=== PATIENT | male | born 1940 | race Caucasian/White ===

== ENCOUNTER → 2018-02-15 15:47 | Outpatient (CLI) | payer MEDICARE, OTHER, SELFPAY ==
[2018-02-15 17:07] LABS: Hematocrit 43.1 % (40-54); Hemoglobin 14.1 g/dl (13.0-16.5); Mean Corp Hgb Conc 32.7 g/gl (32-36); Mean Corpuscular Hgb 28.9 pg (27.0-32.0); Mean Corpuscular Volume 88.3 fL (80-94); Platelet Count 275 K/mm3 (150-450); RBC Distribution Width CV 13.1 % (11.6-14.6); Red Blood Count 4.88 M/mm3 (4.6-6.2); White Blood Count 8.6 K/mm3 (4.4-11.0)
[2018-02-15 17:09] LABS: Scan Indicated on CBC? Y/N NO
[2018-02-15 18:11] LABS: Anion Gap 10 (5-15); BUN 16 mg/dL (7-18); BUN/Creat Ratio 15.1 RATIO (10-20); Calcium,Total 8.7 mg/dL (8.5-10.1); Chloride 107 mmol/L (98-107); Creatinine, Serum 1.06 mg/dL (0.70-1.30); EST Glomerular Filtration Rate 72 mL/min (>60); Est Glom Filt Rate - Afr Amer 87 mL/min (>60); Glucose 78 mg/dL (74-106); Potassium 4.2 mmol/L (3.5-5.1); Sodium Level 142 mmol/L (136-145)
== END ==
PROVIDERS: Family Provider Family Medicine; PCP Family Medicine; Visit Provider Physician Assistant
DX: Z01.818 Encounter for other preprocedural examination (principal); Z01.810 Encounter for preprocedural cardiovascular examination
CPT/HCPCS: 36415; 80048; 85027; 93005

== ENCOUNTER 2018-06-22 22:09 | Observation (INO) | payer MEDICARE, OTHER, SELFPAY ==
[2018-06-22] VITALS (7 sets, daily range): BP systolic 115–187; BP diastolic 69–96; PULSE 70–75; RESP 14–17; TEMP 36.4; O2SAT 96–97; BMI 30.5
--- NOTE | 2018-06-22 22:28 | EKG12_ITS ---
Test Reason : CP Blood Pressure : / mmHG Vent. Rate : 072 BPM Atrial Rate : 072 BPM P-R Int : 148 ms QRS Dur : 094 ms QT Int : 400 ms P-R-T Axes : 032 040 029 degrees QTc Int : 438 ms Normal sinus rhythm with sinus arrhythmia Normal ECG Confirmed by ALDEN BELLE ([id number]), photograph editor NATHALIE PAUL ([id number]) on 06/25/2018 1:02:32 PM Referred By: ANGELA Confirmed By:ALDEN BELLE
--- NOTE | 2018-06-22 22:31 | RAD_ITS ---
STUDY: X-RAY CHEST REASON FOR EXAM: Male, 78 years old. Chest and back pain. TECHNIQUE: Portable chest. COMPARISON: None. FINDINGS: The lungs are clear and expanded. There is no demonstrated pleural abnormality. Normal size heart. Normal mediastinum and zenon. Normal visualized pulmonary arteries. Normal visualized aortic arch and descending thoracic aorta. There is a mild thoracic levoscoliosis. Soft tissues and bony structures are otherwise unremarkable. RAD/Chest 1 View (Portable) IMPRESSION: No acute process. Electronically Signed: Marjorie Barajas MD at 22:49 EST Tel , Service support ,
[2018-06-22] MEDS: Aspirin 81 MG TAB.CHEW 324 MG PO (22:43)
[2018-06-22 22:48] LABS: Absolute Lymphocyte Count 2.62 X10^3/ul (0.83-4.51); Absolute Neutrophil Count 8.7 X10^3/uL (2.0-7.7); Basophil# 0.04 X10^3/uL; Basophil% 0.3 % (0-1); Eosinophils% 1.6 % (0-5); Hematocrit 42.3 % (40-54); Hemoglobin 13.9 g/dl (13.0-16.5); Lymphocyte # 2.62 X10^3/ul (4.0); Lymphocyte % 21.1 % (19-41); Mean Corp Hgb Conc 32.9 g/gl (32-36); Mean Corpuscular Hgb 28.9 pg (27.0-32.0); Mean Corpuscular Volume 87.9 fL (80-94); Mean Platelet Vol. 8.4 fl (6.2-12.0); Monocyte% 7.2 % (0-10); Neutrophil # 8.66 X10^3/uL (2.7-7.7); Neutrophil % 69.6 % (47-70); Platelet Count 275 K/mm3 (150-450); RBC Distribution Width CV 13.4 % (11.6-14.6); RBC Distribution Width SD 43.2 fl (35.1-43.9); Red Blood Count 4.81 M/mm3 (4.6-6.2); White Blood Count 12.4 K/mm3 (4.4-11.0)
[2018-06-22 22:49] LABS: POSITIVE COUNT NO; POSITIVE DIFFERENTIAL NO; POSITIVE MORPHOLOGY NO
[2018-06-22 23:01] LABS: Anion Gap 8 (5-15); BUN 15 mg/dL (7-18); BUN/Creat Ratio 12.4 RATIO (10-20); Calcium,Total 8.5 mg/dL (8.5-10.1); Chloride 103 mmol/L (98-107); Creatinine, Serum 1.21 mg/dL (0.70-1.30); EST Glomerular Filtration Rate 62 mL/min (>60); Est Glom Filt Rate - Afr Amer 75 mL/min (>60); Estimated Creatinine Clearance 46.87 ml/min; Glucose 118 mg/dL (74-106); Potassium 3.9 mmol/L (3.5-5.1); Sodium Level 137 mmol/L (136-145)
[2018-06-22 23:36] LABS: AST(SGOT) 15 U/L (15-37); Alanine Aminotransfer ALT/SGPT 18 U/L (16-61); Albumin, Serum 3.6 g/dL (3.2-5.0); Alkaline Phosphatase 88 U/L (45-117); Bilirubin, Direct 0.23 mg/dL (0.00-0.30); Globulin 3.7 g/dL (2.2-4.2); Protein, Total 7.3 g/dL (6.4-8.2)
--- NOTE | 2018-06-22 23:50 | ED.VISSUMM ---
- ER Visit Summary Date of Service: 06/22/18 Chief Complaint: Heartburn band sensation around chest History of Present Illness: The patient is a 78 M who presents because of heartburn and band sensation around his chest that started approximately 1900. He was working in his shop. He states he had difficulty breathing but denied shortness of breath. Denied nausea or diaphoresis. He had an episode yesterday afternoon while working in his shop. The discomfort lasted approximate 1 hour and was associated with difficulty breathing. He had no nausea, diaphoresis or radiation of the discomfort. Today while exerting himself again in his shop developed heartburn with a band sensation around his chest difficulty breathing and pain in his back. He denies symptoms of claudication. He denies history of diabetes, hypertension or hypercholesterolemia. He was a smoker when he was a teenager. He denies any food intolerance. Upon review of records he was noted to have cholelithiasis with no history of biliary colic or evidence of cholecystitis. He denies leg pain, swelling discoloration. He denies history of PE or DVT. He has no risk factors. Please read written note for complete detail Physical Examination: Vital signs noted and blood pressure is elevated 171/83. Head is atraumatic normocephalic. Pupils are equal round reactive. Extraocular muscles are intact. TMs are pearly white with landmarks noted. Nares patent with no drainage. Posterior pharynx without erythema or exudate. Uvula is midline. There is no dysphonia or dysphasia. Trachea is midline. There is no stridor with auscultation of the neck. Heart is regular without murmur, gallop or rub. S1 and S2 are normal. Lungs are clear to auscultation with good movement of air bilaterally. Abdomen is soft with no tenderness. No hepatosplenomegaly. Negative Gray sign. Bowel sounds present normal. There is no palpable mass or pulsatile mass. There is no abdominal bruit. DP and PT pulses are 2+ and symmetric. There is no stigmata of peripheral arterial disease lower extremity. Neuro exam is nonfocal. Test Results: EKG sinus rhythm rate of 72 and the CO interval, Q synagogue QT interval normal. [place] is normal. ST-T segments are normal. Single view portable chest x-ray reveals normal cardiac silhouette and lung parenchyma. There is granulomatous disease noted predominant left hilum. Osseous structures are normal. White count is slightly elevated 12.4. Basic medical panel is unremarkable. Liver profile normal. First troponin less than 0.015. Emergency Department Course and Treatment: Patient was treated with aspirin and nitro series ordered. He states the discomfort got worse with the nitroglycerin. Cardiac workup was undertaken initially. After learning that he has cholelithiasis hepatic and lipase were added. Treatment Plan: The hospitalist was called and he will be a 23-hour observation PCU for further testing to determine cardiac versus noncardiac etiology and specifically biliary Disposition: PCU Impression: 1. Chest pain 2. History of cholelithiasis 3. Hypertension in nonhypertensive patient This note was generated with [employer] dictation software. It may contain incorrect words, spelling, and punctuation that were not noted in review of the chart prior to signing ED Disposition - Plan for ED Patient: Chief Complaint: Chest Pain Referrals: Adria Brown [Primary Care Provider] -
--- NOTE | 2018-06-22 23:52 | HP.PCM_ITS ---
History of Present Illness Date of Admission: 06/23/18 Chief Complaint: chest pain The patient is a 78 year old M with no significant past medical history. He was admitted through the ED on 06/22/2018 with a complaint of chest pain. Chest pain was pressure-like, radiated to his left shoulder, with no aggravating or relieving factors. He rated it at about 8 out of 10 at its worse. He denied any lightheadedness or dizziness or palpitations or shortness of breath with or chest pain. He says a few weeks ago he went to his primary care doctor because he was having increased diaphoresis and feeling lightheaded but did not have any chest pain at that time. He has a strong family history of heart disease with his father dying of a heart attack and having had some strokes and his brother is also having heart attacks. He also had pain radiated to his upper abdomen sometimes. In the ED, vitals were stable and initial troponin was negative. EKG shows sinus arrhythmia with no acute ST changes. He has been admitted to be managed for chest pain to rule out ACS. [] Past Medical History Allergies No Known Allergies Allergy (Verified 06/22/18 22:18) Home Medications: Ambulatory Orders Medication Instructions Recorded Aspirin [Aspirin, Baby] 81 mg PO DAILY 06/22/18 Potassium 1 tab PO DAILY 06/22/18 Tamsulosin HCl [Flomax] 0.4 mg PO DAILY 06/22/18 Surgical History: - - neck and wrist surgery after accident; bilateral rotator cuff surgery Psychiatric History: No pertinent psych hx Lives: Spouse/ Significant Other Smoking Status: Former smoker - quit in high school Alcohol: Occasional Drugs: None - *Family History Paternal History Items: Heart Disease, Hypertension, Stroke Sibling History Items: Heart Disease, Hypertension Maternal History Items: Cancer Review of Systems Constitutional: Denies: Chills, Fever, Malaise, Weakness, Weight Change, Fatigue Eyes: Denies: Blurred vision HEENT: Denies: Head Aches, Sinus Congestion, Sinus Drainage Cardiovascular: Reports: Chest Pain, Chest Pressure, Heaviness. Denies: Chest Tightness, Edema, Light Headedness, Orthopnea, Palpitations, Paroxysmal Noc. Dyspnea, Syncope Respiratory: Denies: Cough, Shortness of Breath, Shortness of breath at rest, Shortness of breath upon exertion, Sputum production, Wheezing Gastrointestinal: Reports: Abdominal Pain. Denies: Nausea, Vomiting Genitourinary: Denies: Dysuria Musculoskeletal: Denies: Joint Pain, Joint Tenderness Skin: Denies: Rash, Wounds Neurological: Denies: Numbness, Tingling, Focal weakness Psychiatric: Denies: Anxiety, Depression, Homicidal Ideations, Suicidal Ideations Hematologic/ Lymphatic: Denies: Easy Bruising, Easy Bleeding VTE Information - Inpt Only VTE Present on Admission: No VTE Pharm Prophylaxis ordered?: Yes - Physical Exam General: Alert, Oriented x3, Cooperative, No apparent distress HEENT: Atraumatic, PERRLA, EOMI, Normocephalic Oral: Moist Mucosa Neck: Supple, No JVD, Negative Carotid Bruits Lungs: Clear to auscultation, Normal air movement, No rhonchi, No wheeze, No rales Cardiovascular: Regular rate, Regular Rhythm, Normal S1, Normal S2, No murmurs Abdomen: Bowel Sounds Present, Soft, Non Tender, Non-Distended, No Hepato- splenomegaly Extremities: No clubbing, No cyanosis, No edema, Capillary Refill Less than 3 Seconds Skin: No rashes, No breakdown Musculoskeletal: No Tenderness to Palpation of Joints or Extremities Lymphatic: No Cervical, Supraclavicular, or Inguinal Adenopathy Neurological: Cranial nerves II-XII grossly intact, Neuro grossly intact, Motor Exam 5/5 strength throughout Psych/Mental Status: Normal Affect, Appropriate, Alert and oriented to time, place, person, mood and affect Vital Signs Temp Pulse Resp BP Pulse Ox 97.6 F L 73 14 118/69 96 06/22/18 22:12 06/22/18 23:25 06/22/18 23:25 06/22/18 23:25 06/22/18 23:25 Oxygen Delivery Method Room Air Weight: 189 lb 6.033 oz Body Mass Index (BMI) 30.5 Laboratory Tests Past 24 Hrs 06/22/18 06/22/18 06/22/18 22:36 22:36 22:36 WBC 12.4 H RBC 4.81 Hgb 13.9 Hct 42.3 MCV 87.9 MCH 28.9 MCHC 32.9 RDW 13.4 RDW Differential 43.2 Plt Count 275 MPV 8.4 Immature Gran % (Auto) 0.200 Neut % (Auto) 69.6 Lymph % (Auto) 21.1 [place] % (Auto) 7.2 Eos % (Auto) 1.6 Baso % (Auto) 0.3 Absolute Neuts (auto) 8.7 H Absolute Lymphs (auto) 2.62 Total Counted Not Reportable Sodium 137 Potassium 3.9 Chloride 103 Carbon Dioxide 26.0 Anion Gap 8 BUN 15 Creatinine 1.21 Estim Creat Clear Calc 46.87 Est GFR (MDRD) Af Amer 75 Est GFR (MDRD) Non-Af 62 BUN/Creatinine Ratio 12.4 Glucose 118 H Calcium 8.5 Total Bilirubin 0.80 Direct Bilirubin 0.23 AST 15 ALT 18 Alkaline Phosphatase 88 Troponin I < 0.015 Total Protein 7.3 Albumin 3.6 Globulin 3.7 Lipase 06/22/18 22:36 WBC RBC Hgb Hct MCV MCH MCHC RDW RDW Differential Plt Count MPV Immature Gran % (Auto) Neut % (Auto) Lymph % (Auto) [place] % (Auto) Eos % (Auto) Baso % (Auto) Absolute Neuts (auto) Absolute Lymphs (auto) Total Counted Sodium Potassium Chloride Carbon Dioxide Anion Gap BUN Creatinine Estim Creat Clear Calc Est GFR (MDRD) Af Amer Est GFR (MDRD) Non-Af BUN/Creatinine Ratio Glucose Calcium Total Bilirubin Direct Bilirubin AST ALT Alkaline Phosphatase Troponin I Total Protein Albumin Globulin Lipase Pending Diagnostic Data Chest X-Ray 06/22/18 22:31 IMPRESSION: No acute process. Electronically Signed: Marjorie Barajas MD at 22:49 EST Tel , Service support , Assessment/Plan 28-year-old male presents with a complaint of chest pain 1. Chest pain to rule out ACS * pain is pressure like and radiates to left shoulder. * EKG negative for any acute ST changes * initial troponin negative * admit to PCU with telemetry * Cycle troponins. * Check lipid panel and A1c. * Sublingual nitroglycerin as needed * P.o. aspirin 81 mg daily * 2. BPH: On Flomax DVT Prophylaxis: Heparin Code Visit OBSV E&M: 36216 Initial observation care L2
--- NOTE | 2018-06-22 23:56 | ED.DCSUM_ITS ---
- ER Visit Summary Date of Service: 06/22/18 Chief Complaint: Heartburn band sensation around chest History of Present Illness: The patient is a 78 M who presents because of heartburn and band sensation around his chest that started approximately 1900. He was working in his shop. He states he had difficulty breathing but denied shortness of breath. Denied nausea or diaphoresis. He had an episode yesterday afternoon while working in his shop. The discomfort lasted approximate 1 hour and was associated with difficulty breathing. He had no nausea, diaphoresis or radiation of the discomfort. Today while exerting himself again in his shop developed heartburn with a band sensation around his chest difficulty breathing and pain in his back. He denies symptoms of claudication. He denies history of diabetes, hypertension or hypercholesterolemia. He was a smoker when he was a teenager. He denies any food intolerance. Upon review of records he was noted to have cholelithiasis with no history of biliary colic or evidence of cholecystitis. He denies leg pain, swelling discoloration. He denies history of PE or DVT. He has no risk factors. Please read written note for complete detail Physical Examination: Vital signs noted and blood pressure is elevated 171/83. Head is atraumatic normocephalic. Pupils are equal round reactive. Extraocular muscles are intact. TMs are pearly white with landmarks noted. Nares patent with no drainage. Posterior pharynx without erythema or exudate. Uvula is midline. There is no dysphonia or dysphasia. Trachea is midline. There is no stridor with auscultation of the neck. Heart is regular without murmur, gallop or rub. S1 and S2 are normal. Lungs are clear to auscultation with good movement of air bilaterally. Abdomen is soft with no tenderness. No hepatosplenomegaly. Negative Gray sign. Bowel sounds present normal. There is no palpable mass or pulsatile mass. There is no abdominal bruit. DP and PT pulses are 2+ and symmetric. There is no stigmata of peripheral arterial disease lower extremity. Neuro exam is nonfocal. Test Results: EKG sinus rhythm rate of 72 and the IA interval, Q druze QT interval normal. [place] is normal. ST-T segments are normal. Single view por table chest x-ray reveals normal cardiac silhouette and lung parenchyma. There is granulomatous disease noted predominant left hilum. Osseous structures are normal. White count is slightly elevated 12.4. Basic medical panel is unremarkable. Liver profile normal. First troponin less than 0.015. Emergency Department Course and Treatment: Patient was treated with aspirin and nitro series ordered. He states the discomfort got worse with the nitroglycerin. Cardiac workup was undertaken initially. After learning that he has cholelithiasis hepatic and lipase were added. Treatment Plan: The hospitalist was called and he will be a 23-hour observation PCU for further testing to determine cardiac versus noncardiac etiology and specifically biliary Disposition: PCU Impression: 1. Chest pain 2. History of cholelithiasis 3. Hypertension in nonhypertensive patient This note was generated with [employer] dictation software. It may contain incorrect words, spelling, and punctuation that were not noted in review of the chart prior to signing ED Disposition - Plan for ED Patient: Chief Complaint: Chest Pain Referrals: Adria Brown [Primary Care Provider] -
[2018-06-23] VITALS (8 sets, daily range): BP systolic 142–159; BP diastolic 72–80; PULSE 68–81; RESP 16–20; TEMP 36.8–37; O2SAT 93–98; BMI 29.9
[2018-06-23 00:05] LABS: Lipase 231 U/L (73-393)
[2018-06-23 01:10] LABS: Hemoglobin A1c 6.6 % (4.2-6.3)
--- NOTE | 2018-06-23 04:12 | STE_ITS ---
Reason For Study: Chest Pain Stress Results Protocol: [place] Protocol Maximum Predicted HR: 144 bpm Target HR: 122 bpm % Maximum Predicted HR: 106 % DurationHeart Rate Stage (mm:ss) (bpm) BP Comment Baseline 98 158/74No Chest Pain [place] Protocol Stage I 3:00 121 170/68No Chest Pain [place] Protocol Stage II 3:00 136 184/70No Chest Pain [place] Protocol Stage III 3:00 153 176/72No Chest Pain Recovery 113 154/80No Chest Pain Stress Duration: 9:00 mm:ss Maximum Stress HR: 153 bpm METS: 10 Baseline Echocardiogram Findings The estimated ejection fraction is 65 %. Stress Echo Wall motion Data Resting WM Intermediate WM Stress WM Resting Wall Motion Wall Motion Stress No regional wall motion No regional wall motion abnormalities noted. abnormalities noted. EKG Data The baseline ECG displays normal sinus rhythm. The patient exercised according to the regular [place] protocol for a total duration of 9:00. The maximum heart rate attained was 155 beats per minute. This was 107% of maximum predicted heart rate. The patient exercised into stage 4 of the [place] protocol. During stress, there were no ST or T wave changes noted to suggest ischemia. No clinical angina was noted. Interpretation Summary The estimated ejection fraction is 65 %. Normal, adequate, treadmill echocardiogram. Negative for ischemia by EKG and echocardiographic criteria. No anginal symptoms noted. Rare PACs noted. Appropriate blood pressure response to exercise. Average exercise capacity for age. Final LVEF is 75%. Test terminated due to fatigue. No complications. Ordering Physician: Yumiko Fontanez M.D. Referring Physician: Andrey Bruner Performed By: Gina Hernandez, LUCINDA, RVT
[2018-06-23 04:53] LABS: Absolute Lymphocyte Count 2.05 X10^3/ul (0.83-4.51); Absolute Neutrophil Count 8.1 X10^3/uL (2.0-7.7); Basophil# 0.06 X10^3/uL; Basophil% 0.5 % (0-1); Eosinophil# 0.06 X10^3/uL; Eosinophils% 0.5 % (0-5); Hemoglobin 13.9 g/dl (13.0-16.5); Lymphocyte # 2.05 X10^3/ul (4.0); Lymphocyte % 17.8 % (19-41); Mean Corp Hgb Conc 33.9 g/gl (32-36); Mean Corpuscular Hgb 29.6 pg (27.0-32.0); Mean Corpuscular Volume 87.2 fL (80-94); Mean Platelet Vol. 8.5 fl (6.2-12.0); Monocyte# 1.23 X10^3/uL; Monocyte% 10.7 % (0-10); Neutrophil # 8.06 X10^3/uL (2.7-7.7); Neutrophil % 70.2 % (47-70); Platelet Count 311 K/mm3 (150-450); RBC Distribution Width CV 13.4 % (11.6-14.6); RBC Distribution Width SD 41.6 fl (35.1-43.9); White Blood Count 11.5 K/mm3 (4.4-11.0)
[2018-06-23 04:55] LABS: POSITIVE COUNT NO; POSITIVE DIFFERENTIAL NO; POSITIVE MORPHOLOGY NO
[2018-06-23 05:05] LABS: International Normalized Ratio 1.1; Prothrombin Time (Protime)PT. 13.7 SECONDS (11.7-14.9)
[2018-06-23 05:06] LABS: Partial Thromboplast Time 35.9 Seconds (24.1-36.2)
[2018-06-23 05:15] LABS: Anion Gap 8 (5-15); BUN 11 mg/dL (7-18); BUN/Creat Ratio 10.6 RATIO (10-20); Calcium,Total 8.5 mg/dL (8.5-10.1); Chloride 106 mmol/L (98-107); Cholesterol 128 mg/dL (200); Creatinine, Serum 1.04 mg/dL (0.70-1.30); EST Glomerular Filtration Rate 74 mL/min (>60); Est Glom Filt Rate - Afr Amer 89 mL/min (>60); Estimated Creatinine Clearance 54.53 ml/min; Glucose 114 mg/dL (74-106); High Density Lipoprotein 45 mg/dL; Potassium 4.2 mmol/L (3.5-5.1); Sodium Level 140 mmol/L (136-145); Triglycerides 75 mg/dL; Very Low Density Lipoprotein 15 mg/dL (5-40)
[2018-06-23] MEDS: 0.9% NaCl Peripheral Flush Adult/Peds IV (05:57)
[2018-06-23] MEDS: Aspirin 81 MG TAB.CHEW PO (06:57)
[2018-06-23] MEDS: Enoxaparin 40 MG/0.4 ML Syringe SC (10:08)
[2018-06-23] MEDS: Tamsulosin HCl 0.4 MG Capsule PO (10:08)
--- NOTE | 2018-06-23 10:48 | PCM.DC ---
You will use the following diet at home:: Other - Carb controlled Discharge Activity: Return to Normal Activity Call your doctor if you observe: Shortness of breath, Dizziness, Fainting spells, Chest pain Additional Instructions: Your hemoglobin A1c was 6.6% which indicates you have type 2 diabetes mellitus. Recommend carb control diet and further discussion with your primary care about adding medication if necessary. Allergies/Adverse Reactions: Allergies No Known Allergies Allergy (Verified 06/22/18 22:18) Medications to take at Discharge Aspirin [Aspirin, Baby] 81 mg PO DAILY 06/22/18 Potassium 1 tab PO DAILY 06/22/18 Tamsulosin HCl [Flomax] 0.4 mg PO DAILY 06/22/18 Cholecalciferol (Vitamin D3) [Vitamin D3] 2,000 unit PO DAILY 06/23/18 Gluc Pollard/Chondro Pollard A/Vit C/Mn [Glucosamine Chondroitin Tab] 2 each PO BREAKFAST 06/23/18 Primary Care Physician: Adria Brown [Primary Care Provider] - Please follow up with your Primary Care Physician in: 1 Week Test Results: Test results from this visit will be discussed in further detail at your follow-up appointment, if applicable. Proposed Discharge Date: 06/23/18
--- NOTE | 2018-06-23 10:56 | DCINST_ITS ---
You will use the following diet at home:: Other - Carb controlled Discharge Activity: Return to Normal Activity Call your doctor if you observe: Shortness of breath, Dizziness, Fainting spells, Chest pain Additional Instructions: Your hemoglobin A1c was 6.6% which indicates you have type 2 diabetes mellitus. Recommend carb control diet and further discussion with your primary care about adding medication if necessary. Allergies/Adverse Reactions: Allergies No Known Allergies Allergy (Verified 06/22/18 22:18) Medications to take at Discharge Aspirin [Aspirin, Baby] 81 mg PO DAILY 06/22/18 Potassium 1 tab PO DAILY 06/22/18 Tamsulosin HCl [Flomax] 0.4 mg PO DAILY 06/22/18 Cholecalciferol (Vitamin D3) [Vitamin D3] 2,000 unit PO DAILY 06/23/18 Gluc Pollard/Chondro Pollard A/Vit C/Mn [Glucosamine Chondroitin Tab] 2 each PO BREAKFAST 06/23/18 Primary Care Physician: Adria Brown [Primary Care Provider] - Please follow up with your Primary Care Physician in: 1 Week Test Results: Test results from this visit will be discussed in further detail at your follow- up appointment, if applicable. Proposed Discharge Date: 06/23/18
--- NOTE | 2018-06-23 11:14 | DS.PCM_ITS ---
<Ivonne Christian - Last Filed: 06/23/18 11:14> Discharge Date and Diagnosis Date of Admission: 06/23/18 Date of Discharge: 06/23/18 - Primary Discharge Diagnosis 1. Non-cardiac chest pain, ACS ruled out 2. New diagnosis Type 2 Diabetes Mellitus 3. BPH Hospital Course and Treatment Imaging Results: Diagnostic Data Chest X-Ray 06/22/18 22:31 IMPRESSION: No acute process. Electronically Signed: Marjorie Barajas MD at 22:49 EST Tel , Service support , Operations: None Procedures: - - Stress echo Summary of Care Provided: The patient is a 78 year old M admitted 06/23/18 due to chest pain. ACS ruled out. Troponin negative. EKG with no ST-T changes. Chest x-ray without acute process. Patient underwent stress echo which was negative for ischemia, EF 65%. Patient has not had further chest pain. Hemoglobin A1c 6.6%. Patient recommended carb controlled diet with follow-up with primary care physician to discuss adding additional oral agents if necessary. Follow up with primary care physician in 1 week. General: Alert, Oriented x3, Cooperative HEENT: Atraumatic, PERRLA, EOMI, Normocephalic Oral: Moist Mucosa Neck: Supple, No JVD, Negative Carotid Bruits Lungs: Clear to auscultation, Normal air movement Cardiovascular: Regular rate, Regular Rhythm, Normal S1, Normal S2, No murmurs Abdomen: Bowel Sounds Present, Soft, Non Tender Extremities: No clubbing, No cyanosis, No edema, Capillary Refill Less than 3 Seconds Skin: No rashes, No breakdown Musculoskeletal: No Tenderness to Palpation of Joints or Extremities Lymphatic: No Cervical, Supraclavicular, or Inguinal Adenopathy Neurological: Cranial nerves II-XII grossly intact, Neuro grossly intact Psych/Mental Status: Normal Affect Patient seen and examined prior to discharge. Physical assessment as noted above. Patient is stable for discharge with follow up recommendations as noted above. This patient was seen by COSMO Serrato under the supervision of Dr. Bravo. - Physical Exam Vital Signs Temp Pulse Resp BP Pulse Ox 98.3 F 74 16 156/80 H 94 06/23/18 10:07 06/23/18 10:07 06/23/18 10:07 06/23/18 10:07 06/23/18 10:07 Oxygen Delivery Method Room Air Weight: 185 lb 3.013 oz Body Mass Index (BMI) 29.9 Intake and Output for Last 24 Hours 06/21/18 06/22/18 06/23/18 23:59 23:59 23:59 Intake Total 100 / 100 Balance 100 / 100 Laboratory Tests Past 24 Hrs 06/22/18 06/22/18 06/22/18 22:36 22:36 22:36 WBC 12.4 H RBC 4.81 Hgb 13.9 Hct 42.3 MCV 87.9 MCH 28.9 MCHC 32.9 RDW 13.4 RDW Differential 43.2 Plt Count 275 MPV 8.4 Immature Gran % (Auto) 0.200 Neut % (Auto) 69.6 Lymph % (Auto) 21.1 Sequoyah % (Auto) 7.2 Eos % (Auto) 1.6 Baso % (Auto) 0.3 Absolute Neuts (auto) 8.7 H Absolute Lymphs (auto) 2.62 Total Counted Not Reportable PT INR APTT Sodium 137 Potassium 3.9 Chloride 103 Carbon Dioxide 26.0 Anion Gap 8 BUN 15 Creatinine 1.21 Estim Creat Clear Calc 46.87 Est GFR (MDRD) Af Amer 75 Est GFR (MDRD) Non-Af 62 BUN/Creatinine Ratio 12.4 Glucose 118 H Hemoglobin A1c Calcium 8.5 Total Bilirubin 0.80 Direct Bilirubin 0.23 AST 15 ALT 18 Alkaline Phosphatase 88 Troponin I < 0.015 Total Protein 7.3 Albumin 3.6 Globulin 3.7 Triglycerides Cholesterol LDL Cholesterol VLDL Cholesterol HDL Cholesterol Lipase 06/22/18 06/22/18 06/23/18 22:36 22:36 02:12 WBC RBC Hgb Hct MCV MCH MCHC RDW RDW Differential Plt Count MPV Immature Gran % (Auto) Neut % (Auto) Lymph % (Auto) Sequoyah % (Auto) Eos % (Auto) Baso % (Auto) Absolute Neuts (auto) Absolute Lymphs (auto) Total Counted PT INR APTT Sodium Potassium Chloride Carbon Dioxide Anion Gap BUN Creatinine Estim Creat Clear Calc Est GFR (MDRD) Af Amer Est GFR (MDRD) Non-Af BUN/Creatinine Ratio Glucose Hemoglobin A1c 6.6 H Calcium Total Bilirubin Direct Bilirubin AST ALT Alkaline Phosphatase Troponin I < 0.015 Total Protein Albumin Globulin Triglycerides Cholesterol LDL Cholesterol VLDL Cholesterol HDL Cholesterol Lipase 231 06/23/18 06/23/18 06/23/18 04:45 04:45 04:45 WBC 11.5 H RBC 4.70 Hgb 13.9 Hct 41.0 MCV 87.2 MCH 29.6 MCHC 33.9 RDW 13.4 RDW Differential 41.6 Plt Count 311 MPV 8.5 Immature Gran % (Auto) 0.300 Neut % (Auto) 70.2 H Lymph % (Auto) 17.8 L Sequoyah % (Auto) 10.7 H Eos % (Auto) 0.5 Baso % (Auto) 0.5 Absolute Neuts (auto) 8.1 H Absolute Lymphs (auto) 2.05 Total Counted Not Reportable PT 13.7 INR 1.1 APTT 35.9 Sodium 140 Potassium 4.2 Chloride 106 Carbon Dioxide 26.0 Anion Gap 8 BUN 11 Creatinine 1.04 Estim Creat Clear Calc 54.53 Est GFR (MDRD) Af Amer 89 Est GFR (MDRD) Non-Af 74 BUN/Creatinine Ratio 10.6 Glucose 114 H Hemoglobin A1c Calcium 8.5 Total Bilirubin Direct Bilirubin AST ALT Alkaline Phosphatase Troponin I < 0.015 Total Protein Albumin Globulin Triglycerides 75 Cholesterol 128 LDL Cholesterol 68 VLDL Cholesterol 15 HDL Cholesterol 45 Lipase Discharge Diet: Carb Control Diet Discharge Activity: Return to Normal Activity Call your doctor if you observe: Shortness of breath, Dizziness, Fainting spells, Chest pain Home Medications: Medications to take at Discharge Aspirin [Aspirin, Baby] 81 mg PO DAILY 06/22/18 Potassium 1 tab PO DAILY 06/22/18 Tamsulosin HCl [Flomax] 0.4 mg PO DAILY 06/22/18 Cholecalciferol (Vitamin D3) [Vitamin D3] 2,000 unit PO DAILY 06/23/18 Gluc Pollard/Chondro Pollard A/Vit C/Mn [Glucosamine Chondroitin Tab] 2 each PO BREAKFAST 06/23/18 Primary Care Physician: Adria Brown [Primary Care Provider] - Please follow up with your Primary Care Physician in: 1 Week Disposition: Home Minutes spent on discharge:: 35 Patient Condition:: Stable Medical Necessity - Tobacco Use Smoking Status: Former smoker - quit in high school Tobacco Use: Non-smoker Meaningful Use Info Meaningful Use Diagnoses (Choose all that apply): None applicable <Kittoe,Polo - Last Filed: 06/23/18 11:46> Hospital Course and Treatment Imaging Results: 06/23/18 04:12 Stress Test Echo w/o Contrast [ECHO] Routine Summary of Care Provided: This patient was seen in conjunction with COSMO Serrato . I have independently interviewed and examined the patient and reviewed pertinent historical, laboratory, and other data. Please refer to COSMO Serrato note for details of this patient's presentation, findings, and recommendations. I have reviewed COSMO Serrato note and concur with documented findings. In brief, patient is a 88-year-old gentleman admitted with chest pain. Patient was placed on a monitored bed, KS was ruled out with serial cardiac enzymes subsequently underwent a rest echo which was negative for stress-induced ischemia discharge home instructed to follow-up with PCP - Physical Exam Vital Signs Temp Pulse Resp BP Pulse Ox 98.3 F 74 16 156/80 H 94 06/23/18 10:07 06/23/18 10:07 06/23/18 10:07 06/23/18 10:07 06/23/18 10:07 Oxygen Delivery Method Room Air Weight: 84 kg Body Mass Index (BMI) 29.9 Intake and Output for Last 24 Hours 06/21/18 06/22/18 06/23/18 23:59 23:59 23:59 Intake Total 100 / 100 Balance 100 / 100 Laboratory Tests Past 24 Hrs 06/22/18 06/22/18 06/22/18 22:36 22:36 22:36 WBC 12.4 H RBC 4.81 Hgb 13.9 Hct 42.3 MCV 87.9 MCH 28.9 MCHC 32.9 RDW 13.4 RDW Differential 43.2 Plt Count 275 MPV 8.4 Immature Gran % (Auto) 0.200 Neut % (Auto) 69.6 Lymph % (Auto) 21.1 Sequoyah % (Auto) 7.2 Eos % (Auto) 1.6 Baso % (Auto) 0.3 Absolute Neuts (auto) 8.7 H Absolute Lymphs (auto) 2.62 Total Counted Not Reportable PT INR APTT Sodium 137 Potassium 3.9 Chloride 103 Carbon Dioxide 26.0 Anion Gap 8 BUN 15 Creatinine 1.21 Estim Creat Clear Calc 46.87 Est GFR (MDRD) Af Amer 75 Est GFR (MDRD) Non-Af 62 BUN/Creatinine Ratio 12.4 Glucose 118 H Hemoglobin A1c Calcium 8.5 Total Bilirubin 0.80 Direct Bilirubin 0.23 AST 15 ALT 18 Alkaline Phosphatase 88 Troponin I < 0.015 Total Protein 7.3 Albumin 3.6 Globulin 3.7 Triglycerides Cholesterol LDL Cholesterol VLDL Cholesterol HDL Cholesterol Lipase 06/22/18 06/22/18 06/23/18 22:36 22:36 02:12 WBC RBC Hgb Hct MCV MCH MCHC RDW RDW Differential Plt Count MPV Immature Gran % (Auto) Neut % (Auto) Lymph % (Auto) Sequoyah % (Auto) Eos % (Auto) Baso % (Auto) Absolute Neuts (auto) Absolute Lymphs (auto) Total Counted PT INR APTT Sodium Potassium Chloride Carbon Dioxide Anion Gap BUN Creatinine Estim Creat Clear Calc Est GFR (MDRD) Af Amer Est GFR (MDRD) Non-Af BUN/Creatinine Ratio Glucose Hemoglobin A1c 6.6 H Calcium Total Bilirubin Direct Bilirubin AST ALT Alkaline Phosphatase Troponin I < 0.015 Total Protein Albumin Globulin Triglycerides Cholesterol LDL Cholesterol VLDL Cholesterol HDL Cholesterol Lipase 231 06/23/18 06/23/18 06/23/18 04:45 04:45 04:45 WBC 11.5 H RBC 4.70 Hgb 13.9 Hct 41.0 MCV 87.2 MCH 29.6 MCHC 33.9 RDW 13.4 RDW Differential 41.6 Plt Count 311 MPV 8.5 Immature Gran % (Auto) 0.300 Neut % (Auto) 70.2 H Lymph % (Auto) 17.8 L Sequoyah % (Auto) 10.7 H Eos % (Auto) 0.5 Baso % (Auto) 0.5 Absolute Neuts (auto) 8.1 H Absolute Lymphs (auto) 2.05 Total Counted Not Reportable PT 13.7 INR 1.1 APTT 35.9 Sodium 140 Potassium 4.2 Chloride 106 Carbon Dioxide 26.0 Anion Gap 8 BUN 11 Creatinine 1.04 Estim Creat Clear Calc 54.53 Est GFR (MDRD) Af Amer 89 Est GFR (MDRD) Non-Af 74 BUN/Creatinine Ratio 10.6 Glucose 114 H Hemoglobin A1c Calcium 8.5 Total Bilirubin Direct Bilirubin AST ALT Alkaline Phosphatase Troponin I < 0.015 Total Protein Albumin Globulin Triglycerides 75 Cholesterol 128 LDL Cholesterol 68 VLDL Cholesterol 15 HDL Cholesterol 45 Lipase Code Visit OBSV E&M: 61421 Observation care discharge
== END 2018-06-23 10:49 | disposition home or self-care (01) ==
LOC: ED 22:48 → PCU 06-23 00:13
PROVIDERS: Admitting Provider Student in an Organized Health Care Education/Training Program; Emergency Provider Emergency Medicine; Family Provider Family Medicine; PCP Family Medicine; Visit Provider Internal Medicine
DX: R07.89 Other chest pain (principal); E11.9 Type 2 diabetes mellitus without complications; N40.0 Benign prostatic hyperplasia without lower urinary tract symptoms; R06.00 Dyspnea, unspecified; R12 Heartburn; Z79.899 Other long term (current) drug therapy; Z79.82 Long term (current) use of aspirin; Z87.891 Personal history of nicotine dependence
CPT/HCPCS: 36415; 71045; 80048; 80061; 80076; 83036; 83690; 84484; 85025; 85610; 85730; 93005; 93017; 93350; 96372; 99218; 99285; A4216; G0378

== ENCOUNTER 2018-07-14 18:38 | Emergency (ER) | payer MEDICARE, OTHER, SELFPAY ==
[2018-06-28 07:39] VITALS: BMI 29.7
[2018-07-14 18:39] VITALS: BP 121/76; PULSE 111; RESP 16; TEMP 36.1; O2SAT 95; BMI 28.8
--- NOTE | 2018-07-14 19:05 | ED.VISSUMM ---
- ER Visit Summary Date of Service: 07/14/18 Chief Complaint: Abdominal pain History of Present Illness: The patient is a 78 M presenting with abdominal pain. He states this started around 930 this morning. He has had nausea and decreased appetite today. He denies vomiting, diarrhea, constipation. Denies fever. He is scheduled to have his gallbladder removed on Monday per Dr. Nash. Physical Examination: Vitals are stable. Patient is afebrile. Alert no acute distress. HEENT exam is unremarkable. Neck is supple. Lungs are clear and equal bilaterally. Heart is regular rate and rhythm. Abdomen is soft right upper quadrant tenderness with no rebound or guarding Extremities are unremarkable. Skin is warm and dry. No focal neurologic deficit. Remainder of exam is unremarkable. Emergency Department Course and Treatment: Patient is given IV fluids, morphine, Zofran. CBC shows elevated white count of 15.2. Chemistries unremarkable. Total bili 3.1, direct bili 1.56, alk phos 177, ALT 249, AST 358, lipase 165. He was given Zosyn IV. Findings were discussed with Dr. Jordan. She discussed with Dr. Kearney. He is not available for ERCP this weekend. She feels he requires transfer to tertiary care center due to possibility of needing ERCP. Discussed with [facility] for transfer. Disposition: Transfer [facility] Impression: Cholecystitis with elevated liver enzymes This note was generated with [employer] dictation software. It may contain incorrect words, spelling, and punctuation that were not noted in review of the chart prior to signing ED Disposition - Plan for ED Patient: Chief Complaint: Abd Pain Referrals: Adria Brown [Primary Care Provider] -
[2018-07-14] MEDS: Morphine 4 MG/ML Syringe IV (19:21)
[2018-07-14] MEDS: Ondansetron 4 MG/2 ML Vial IV (19:21)
[2018-07-14 19:39] LABS: Absolute Lymphocyte Count 0.46 X10^3/ul (0.83-4.51); Absolute Neutrophil Count 14.3 X10^3/uL (2.0-7.7); Basophil# 0.02 X10^3/uL; Basophil% 0.1 % (0-1); Differential Indicated SCAN CRITERIA MET; Eosinophil# 0.04 X10^3/uL; Eosinophils% 0.3 % (0-5); Hemoglobin 13.9 g/dl (13.0-16.5); Lymphocyte # 0.46 X10^3/ul (4.0); Mean Corp Hgb Conc 32.3 g/gl (32-36); Mean Corpuscular Hgb 28.3 pg (27.0-32.0); Mean Corpuscular Volume 87.6 fL (80-94); Monocyte# 0.37 X10^3/uL; Monocyte% 2.4 % (0-10); Neutrophil # 14.27 X10^3/uL (2.7-7.7); Neutrophil % 93.9 % (47-70); POSITIVE COUNT NO; POSITIVE DIFFERENTIAL YES; POSITIVE MORPHOLOGY NO; Platelet Count 240 K/mm3 (150-450); RBC Distribution Width CV 13.2 % (11.6-14.6); RBC Distribution Width SD 42.2 fl (35.1-43.9); Red Blood Count 4.91 M/mm3 (4.6-6.2); White Blood Count 15.2 K/mm3 (4.4-11.0)
[2018-07-14 19:44] LABS: AST(SGOT) 358 U/L (15-37); Alanine Aminotransfer ALT/SGPT 249 U/L (16-61); Albumin, Serum 3.2 g/dL (3.2-5.0); Alkaline Phosphatase 177 U/L (45-117); Anion Gap 9 (5-15); BUN 10 mg/dL (7-18); Bilirubin, Direct 1.56 mg/dL (0.00-0.30); Calcium,Total 8.5 mg/dL (8.5-10.1); Chloride 104 mmol/L (98-107); EST Glomerular Filtration Rate 77 mL/min (>60); Est Glom Filt Rate - Afr Amer 93 mL/min (>60); Estimated Creatinine Clearance 56.71 ml/min; Globulin 3.8 g/dL (2.2-4.2); Glucose 111 mg/dL (74-106); Lipase 165 U/L (73-393); Potassium 3.9 mmol/L (3.5-5.1); Sodium Level 137 mmol/L (136-145)
[2018-07-14 20:02] LABS: Differential Comment SCANNED
[2018-07-14] MEDS: Piperacil/Tazobactam 3.375 GM/50 ML ML IV (21:07)
[2018-07-14 21:08] VITALS: BP 124/67; PULSE 102; RESP 18; O2SAT 92
--- NOTE | 2018-07-14 21:24 | NURSING ---
ACCEPTED TO [facility] BY DR. SIERRA [phone] BED [id number]
[2018-07-14 21:52] VITALS: BP 130/65; PULSE 104; RESP 16; TEMP 36.4; O2SAT 92
== END 2018-07-14 22:00 | disposition short-term general hospital (02) ==
PROVIDERS: Emergency Provider Emergency Medicine; Family Provider Family Medicine; PCP Family Medicine
DX: K81.9 Cholecystitis, unspecified (principal); R74.8 Abnormal levels of other serum enzymes; D72.829 Elevated white blood cell count, unspecified; E11.9 Type 2 diabetes mellitus without complications; N40.0 Benign prostatic hyperplasia without lower urinary tract symptoms; Z79.82 Long term (current) use of aspirin; Z79.899 Other long term (current) drug therapy
CPT/HCPCS: 80048; 80076; 83690; 85025; 96365; 96375; 99285; J7030; J7040; A4216; J2405

== ENCOUNTER → 2018-08-10 09:11 | Outpatient (CLI) | payer MEDICARE, OTHER, SELFPAY ==
[2018-06-28 07:39] VITALS: BMI 29.7
[2018-07-14 18:39] VITALS: BMI 28.8
== END ==
PROVIDERS: Family Provider Family Medicine; PCP Family Medicine; Referring Provider Surgery; Visit Provider Surgery
DX: Z53.9 Procedure and treatment not carried out, unspecified reason (principal)

== ENCOUNTER → 2018-09-04 10:49 | Outpatient (CLI) | payer MEDICARE, OTHER, SELFPAY ==
--- NOTE | 2018-09-04 11:04 | EKG12_ITS ---
Test Reason : PRE OP Blood Pressure : / mmHG Vent. Rate : 057 BPM Atrial Rate : 057 BPM P-R Int : 150 ms QRS Dur : 080 ms QT Int : 422 ms P-R-T Axes : 047 053 053 degrees QTc Int : 410 ms Sinus bradycardia Otherwise normal ECG Confirmed by ALDEN BELLE ([id number]), telegraph editor NATHALIE PAUL ([id number]) on 09/07/2018 1:33:39 PM Referred By: Merrill Kee Confirmed By:ALDEN BELLE
[2018-09-04 11:48] LABS: Hematocrit 43.1 % (40-54); Hemoglobin 13.8 g/dl (13.0-16.5); Mean Corpuscular Hgb 28.5 pg (27.0-32.0); Mean Platelet Vol. 8.7 fl (6.2-12.0); Platelet Count 344 K/mm3 (150-450); RBC Distribution Width CV 14.5 % (11.6-14.6); RBC Distribution Width SD 47.1 fl (35.1-43.9); Red Blood Count 4.84 M/mm3 (4.6-6.2); White Blood Count 8.4 K/mm3 (4.4-11.0)
[2018-09-04 11:51] LABS: Scan Indicated on CBC? Y/N NO
[2018-09-04 12:42] LABS: Anion Gap 9 (5-15); BUN 12 mg/dL (7-18); BUN/Creat Ratio 11.7 RATIO (10-20); Calcium,Total 8.9 mg/dL (8.5-10.1); Chloride 105 mmol/L (98-107); Creatinine, Serum 1.03 mg/dL (0.70-1.30); EST Glomerular Filtration Rate 75 mL/min (>60); Est Glom Filt Rate - Afr Amer 90 mL/min (>60); Glucose 87 mg/dL (74-106); Potassium 4.2 mmol/L (3.5-5.1); Sodium Level 143 mmol/L (136-145)
== END ==
PROVIDERS: Family Provider Family Medicine; PCP Family Medicine; Referring Provider Physician Assistant; Visit Provider Physician Assistant
DX: Z01.810 Encounter for preprocedural cardiovascular examination (principal); Z01.818 Encounter for other preprocedural examination
CPT/HCPCS: 36415; 80048; 85027; 93005

== ENCOUNTER → 2018-12-24 14:02 | Outpatient (CLI) | payer MEDICARE, OTHER, SELFPAY ==
[2018-12-24 15:48] LABS: Hematocrit 43.6 % (40-54); Hemoglobin 14.6 g/dl (13.0-16.5); Mean Corp Hgb Conc 33.5 g/gl (32-36); Mean Corpuscular Hgb 28.9 pg (27.0-32.0); Mean Corpuscular Volume 86.2 fL (80-94); Platelet Count 297 K/mm3 (150-450); RBC Distribution Width CV 13.4 % (11.6-14.6); RBC Distribution Width SD 41.6 fl (35.1-43.9); Red Blood Count 5.06 M/mm3 (4.6-6.2); White Blood Count 8.3 K/mm3 (4.4-11.0)
[2018-12-24 15:51] LABS: Scan Indicated on CBC? Y/N NO
[2018-12-24 16:07] LABS: Anion Gap 7 (5-15); BUN 16 mg/dL (7-18); BUN/Creat Ratio 14.4 RATIO (10-20); Calcium,Total 8.8 mg/dL (8.5-10.1); Chloride 105 mmol/L (98-107); Creatinine, Serum 1.11 mg/dL (0.70-1.30); EST Glomerular Filtration Rate 68 mL/min (>60); Est Glom Filt Rate - Afr Amer 83 mL/min (>60); Glucose 83 mg/dL (74-106); Potassium 4.3 mmol/L (3.5-5.1); Sodium Level 140 mmol/L (136-145)
== END ==
PROVIDERS: Family Provider Family Medicine; PCP Family Medicine; Referring Provider Physician Assistant Surgical; Visit Provider Physician Assistant Surgical
DX: Z01.818 Encounter for other preprocedural examination (principal)
CPT/HCPCS: 36415; 80048; 85027

== ENCOUNTER → 2020-03-02 15:24 | Outpatient (CLI) | payer MEDICARE, OTHER, SELFPAY ==
--- NOTE | 2020-03-02 15:10 | LES_PTH ---
PATIENT: CARLIE MCINTOSH LOC: [facility] U#:[id number] AGE/SX: 85/M ROOM: RE03/02/[address]: Dr. Melvin Hubbard MD : [id number] BED: DIS: SPEC #: [id number] RECD: 03/02/20 15:10 STATUS: BRANDON ISMAEL #: [id number] RAMIRO: 03/02/20 15:[address]: Melvin Hubbard DEPT: SURGICAL PATHOLOGY RECD BY: Juan Carlos Salcedo ENTERED: 03/03/20 09:07 SP TYPE: Lesion OTHR DR: MARYLU Tissues: Skin of nose, NOS Procedures: Surgery Specimen Level IV HEADER OPERATION: Excision of lesion right nostril PRE-OP DIAGNOSIS: Intranasal lesion right nostril TISSUE SUBMITTED: Lesion right nostril MICROSCOPIC DIAGNOSIS Right nostril lesion, biopsy: Benign verrucous keratosis. Negative for malignancy. SJ:giovanni 03/04/20 COMMENT Case has been reviewed in consultation with Dr. Duenas who concurs with the above diagnosis. IDC:AM MICROSCOPIC DESCRIPTION Slides are reviewed. GROSS DESCRIPTION Received is one container labeled with the patient's name and not further designated. The specimen consists of a piece of angel-white skin measuring 0.8 x 0.3 x 0.2 cm. The specimen is inked, bisected and submitted entirely in one cassette. / SJ:rg 03/03/20 TC:5 CPT: 76613
== END ==
PROVIDERS: Referring Provider Otolaryngology; Visit Provider Otolaryngology
DX: J34.89 Other specified disorders of nose and nasal sinuses (principal)
CPT/HCPCS: 88305

== ENCOUNTER 2021-03-29 14:30 | Outpatient (RCR) | payer MEDICARE, OTHER, SELFPAY ==
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
--- NOTE | 2021-01-18 16:49 | HP.PTREVAL ---
MADISON DOYLE, It has been my pleasure to treat CARLIE MCINTOSH over the last 12 visits for L KNEE OA. S/P TKR 12/01/[address] MINOR. Please see the progress note below for an update on the physical therapy plan of care! Subjective: SURGICAL FOLLOW UP PENDING IN 2 WEEKS. PATIENT REPORTS HE IS REALLY HAPPY WITH HOW HIS KNEE IS DOING AND HE WANTS TO CONTINUE PT TO GET THE BEST RECOVERY POSSIBLE. ABLE TO DO SOME FISHING MONDAY AND MONDAY WITHOUT MUCH PAIN LAST WEEK. PATIENT REPORTS BEING ABLE TO ASCEND AND DESCEND STEPS RECIPRICALLY WITH ONE HR. Objective/Function: PATIENT WAS SEEN TODAY FOR RE-ASSESSMENT OF PROGRESS TOWARD THE SET PT GOALS AND THE NEED FOR FURTHER PHYSICAL THERAPY VS READINESS FOR DISCHARGE. PATIENT IS MAKING GREAT PROGRESS WITH PT AND IS A GOOD CANDIDATE TO CONTINUE PT BASED ON PROGRESS MADE AND ROOM FOR FURTHER IMPROVEMENT. PATIENT IS AGREEABLE. UPON EXAM TODAY: GAIT: INDEP GAIT INTO PT WITHOUT ANY ASSISITVE DEVICE, FAIR CADANCE AND NO LOB. VERY MILD LIMP ON RIGHT LE. TU.26 SEC. PATELLA GIRTH: 41 CM. 6 SUPRAPATELLAR GIRTH: 44 CM. AROM KNEE FLEX: 112 DEG. AROM KNEE EXT: -5 DEG. MMT KNEE FLEX: 4-/5. MMT KNEE EXT: 4-/5. INCISION: INCISION LOOKS GREAT. Plan Plan: GAIT TRAINING ON LEVEL SURFACES AND UP AND DOWN STEPS. L LE ROM, STRETCHING AND STRENGTHENING S/P L TKR 12/01/20. Goals Goal 1:: DECREASE C/O LEFT KNEE PAIN Goal Time Frame: 6-8 Weeks Goal Progress: Progressing Goal 2:: DECREASE L KNEE EDEMA BY 2 CM Goal Time Frame: 6-8 Weeks Goal Progress: Progressing Goal 3:: INCREASE FUNCTIONAL ROM OF RIGHT KNEE TO EASE ADL'S. Goal Time Frame: 6-8 Weeks Goal 4:: INCREASE FUNCTIONAL STRENGTH OF RIGHT KNEE TO EASE ADL'S. Goal Time Frame: 6-8 Weeks Goal Progress: Progressing Goal 5:: INDEP AND SAFE GAIT WITH LEAST ASSISTIVE DEVICE AND LEAST DEVIATIONS ON LEVEL SURFACES AND UP AND DOWN STEPS. Goal Time Frame: 6-8 Weeks Goal Progress: Progressing Goal 6:: PATIENT WILL BE INDEP WITH HEP FOR CONTINUED IMPROVEMENT ONCE FORMAL PHYSICAL THERAPY CONCLUDES. Goal Time Frame: 6-8 Weeks Goal Progress: Progressing Anticipated Interventions Patient/Client Instruction: Educate patient on: Condition, Plan of Care, Risk Factors For the Purpose of:: To improve self management Therapeutic Exercise to Include: Strength training, Body mechanics, Postural training, Gait and locomotor training, Neuromotor development, Active ROM For the Purpose of:: To decrease pain, To decrease swelling/inflammation, To increase ROM, To improve muscle performance and motor function, To increase tolerance to activity/condition/position, To improve ability of physical actions for home/community/work/leisure, To improve gait and locomotor functions Cryotherapy (ice pack, ice massage): Yes Thermo therapy (hot pack): Yes For the Purpose of:: To decrease pain, To decrease swelling/inflammation, To improve nutrient delivery to tissue Please do not hesitate to contact me at [phone] by phone or if you have questions or concerns regarding this new plan of care! Sincerely, Ludmila Lehman, PT, Cert MDT
--- NOTE | 2021-02-17 14:13 | HP.PTREVAL_ITS ---
MADISON DOYLE, It has been my pleasure to treat CARLIE MCINTOSH over the last 21 visits for L KNEE OA. S/P TKR 12/01/[address] MINOR. Please see the progress note below for an update on the physical therapy plan of care! Subjective: Pt. reports overall doing well. Pt. reports no pain currently. Pt. saw physician and discharged, but is to call if needed. Pt. reports being 94% better overall. He reports having some pain with end range flexion, extension and with stair negotiation. pt. reports no pain currently, but has 1-2/10 pain with stairs Objective/Function: AROM: 0-4-115deg. PROM 0-0-119deg. MMT: Pt. has 5/5 strength throughout LLE, but has mild increase in symptoms a patellar region. GAIT: Pt. ambulates well without AD, but does lack TKE during stance phase. STAIRS: Pt. is able to complete with reciprocal pattern with 1 HR both ascending and descending. He does has increase in knee pain during descending, again at patellar region. He has increased tightness at L quad, which may be causing patellar grinding at distal femur with increased knee flexion. Work on quad and HS stretching and progress end range of flexion/extension motions. Edema: 1.5 cm difference between his knees at mid patellar region Plan Plan: He has increased tightness at L quad, which may be causing patellar grinding at distal femur with increased knee flexion. Work on quad and HS stretching and progress end range of flexion/extension motions. Balance/Gait/Functional tests - Balance/Special Test Scores Lower Extremity Functional Score: 45 Goals Goal 1:: DECREASE C/O LEFT KNEE PAIN Goal Time Frame: 6-8 Weeks Goal Progress: Goal Met Goal 2:: DECREASE L KNEE EDEMA BY 2 CM Goal Time Frame: 6-8 Weeks Goal Progress: Goal Met Goal 3:: INCREASE FUNCTIONAL ROM OF RIGHT KNEE TO EASE ADL'S. Goal Time Frame: 6-8 Weeks Goal Progress: Progressing Goal 4:: INCREASE FUNCTIONAL STRENGTH OF RIGHT KNEE TO EASE ADL'S. Goal Time Frame: 6-8 Weeks Goal Progress: Progressing Goal 5:: INDEP AND SAFE GAIT WITH LEAST ASSISTIVE DEVICE AND LEAST DEVIATIONS ON LEVEL SURFACES AND UP AND DOWN STEPS. Goal Time Frame: 6-8 Weeks Goal Progress: Goal Met Goal 6:: PATIENT WILL BE INDEP WITH HEP FOR CONTINUED IMPROVEMENT ONCE FORMAL PHYSICAL THERAPY CONCLUDES. Goal Time Frame: 6-8 Weeks Goal Progress: Goal Met Anticipated Interventions Patient/Client Instruction: Educate patient on: Condition, Plan of Care, Risk Factors For the Purpose of:: To improve self management Therapeutic Exercise to Include: Strength training, Body mechanics, Postural training, Gait and locomotor training, Neuromotor development, Active ROM For the Purpose of:: To decrease pain, To decrease swelling/inflammation, To increase ROM, To improve muscle performance and motor function, To increase tolerance to activity/condition/position, To improve ability of physical actions for home/community/work/leisure, To improve gait and locomotor functions Cryotherapy (ice pack, ice massage): Yes Thermo therapy (hot pack): Yes For the Purpose of:: To decrease pain, To decrease swelling/inflammation, To improve nutrient delivery to tissue Please do not hesitate to contact me at [phone] by phone or Fax: if you have questions or concerns regarding this new plan of care! Sincerely, Von Nugent DPT
--- NOTE | 2021-03-05 15:23 | HP.PTREVAL ---
MADISON DOYLE, It has been my pleasure to treat CARLIE MCINTOSH over the last 26 visits for L KNEE OA. S/P TKR 12/01/[address] MINOR. Please see the progress note below for an update on the physical therapy plan of care! Subjective: PATIENT REPORTS HE FELT GREAT AFTER LAST SESSION. Objective/Function: PATIENT WAS SEEN TODAY FOR RE-ASSESSMENT OF PROGRESS TOWARD THE SET PT GOALS AND THE NEED FOR FURTHER PHYSICAL THERAPY VS READINESS FOR DISCHARGE. PATIENT IS NOW REPORTING AND DEMONSTRATING IMPROVEMENT SINCE RECENT FLARE UP. UPON EXAM TODAY: AROM of L KNEE IN SUPINE WITH A HEEL SLIDE = -2 DEG EXT TO 108 DEG FLEXION WITH ERP. MMT: Pt. has 5/5 strength throughout LLE except terminal knee ext. GAIT: Pt. ambulates well without AD, but does lack just a little bit of TKE during stance phase. STAIRS: Pt. is able to complete with reciprocal pattern with 1 HR both ascending and descending. He does has increase in knee pain during descending of the last step or two but very mild per patient report. Work on quad and HS stretching and progress end range of flexion/extension motions as tolerated but not aggressive. Edema: 2.5 cm difference between his knees at mid patellar region with Right knee measuring 38.25 cm and left 40.75 cm. Plan Plan: Continue PT 2x's a wk x 4 wks. Patient agreeable. Saw PA 03/03/21- Plan for now is to continue ROM/strengthening but much less aggressively. Work on quad and HS stretching and progress end range of flexion/extension motions. Balance/Gait/Functional tests - Balance/Special Test Scores Lower Extremity Functional Score: 50 Goals Goal 1:: DECREASE C/O LEFT KNEE PAIN Goal Time Frame: 6-8 Weeks Goal Progress: Goal Met Goal 2:: DECREASE L KNEE EDEMA BY 2 CM Goal Time Frame: 6-8 Weeks Goal Progress: Goal Met Goal 3:: INCREASE FUNCTIONAL ROM OF RIGHT KNEE TO EASE ADL'S. Goal Time Frame: 6-8 Weeks Goal Progress: Progressing Goal 4:: INCREASE FUNCTIONAL STRENGTH OF RIGHT KNEE TO EASE ADL'S. Goal Time Frame: 6-8 Weeks Goal Progress: Progressing Goal 5:: INDEP AND SAFE GAIT WITH LEAST ASSISTIVE DEVICE AND LEAST DEVIATIONS ON LEVEL SURFACES AND UP AND DOWN STEPS. Goal Time Frame: 6-8 Weeks Goal Progress: Goal Met Goal 6:: PATIENT WILL BE INDEP WITH HEP FOR CONTINUED IMPROVEMENT ONCE FORMAL PHYSICAL THERAPY CONCLUDES. Goal Time Frame: 6-8 Weeks Goal Progress: Goal Met Anticipated Interventions Patient/Client Instruction: Educate patient on: Condition, Plan of Care, Risk Factors For the Purpose of:: To improve self management Therapeutic Exercise to Include: Strength training, Body mechanics, Postural training, Gait and locomotor training, Neuromotor development, Active ROM For the Purpose of:: To decrease pain, To decrease swelling/inflammation, To increase ROM, To improve muscle performance and motor function, To increase tolerance to activity/condition/position, To improve ability of physical actions for home/community/work/leisure, To improve gait and locomotor functions Cryotherapy (ice pack, ice massage): Yes Thermo therapy (hot pack): Yes For the Purpose of:: To decrease pain, To decrease swelling/inflammation, To improve nutrient delivery to tissue Please do not hesitate to contact me at [phone] by phone or if you have questions or concerns regarding this new plan of care! Sincerely, Ludmila Lehman, PT, Cert MDT
--- NOTE | 2021-03-29 14:59 | HP.PTDCSUM ---
It has been my pleasure to treat CARLIE MCINTOSH referred by MADISON DOYLE, with the diagnosis of L KNEE OA. S/P TKR 12/01/[address] MINOR for a total of 33 visit(s). Discharge Date: 03/29/21 Please see the following information for a summary of their discharge status. Subjective: PATIENT REPORTS INCREASED L KNEE PAIN GOING DOWN STEPS AT HOME JAG FOR NO APPARENT REASON. REPORTS THAT IF HE IS CAREFUL GOING DOWN STEPS HE CAN AVOID PAIN. PATIENT REPORTS IF HE STAYS AWAY FROM STEPS IT DOESN'T BOTHER HIM. PATIENT REPORTS HE FEELS READY TO BE DISCHARGED. left knee Pain Intensity (Out of 10): 3 % Improvement: 99 Objective/Function: PATIENT WAS SEEN TODAY FOR RE-ASSESSMENT OF PROGRESS TOWARD THE SET PT GOALS AND THE NEED FOR FURTHER PHYSICAL THERAPY VS READINESS FOR DISCHARGE. All goals met. Patient is appropriate for discharge and agreeable to discharege. UPON EXAM TODAY: AROM of L KNEE IN SUPINE WITH A HEEL SLIDE = FULL DEG EXT TO 116 DEG FLEXION WITH ERP. MMT: Pt. has 5/5 strength throughout LLE. GAIT: Pt. ambulates well on level surfaces without limp or assistive device. STAIRS: Pt. is able to complete with reciprocal pattern with very minimal 1 HR both ascending and descending. Patient denies pain descending steps today reporting that felt good. Mild Left knee edema. Goal 1:: DECREASE C/O LEFT KNEE PAIN Goal Progress: Goal Met Goal 2:: DECREASE L KNEE EDEMA BY 2 CM Goal Progress: Goal Met Goal 3:: INCREASE FUNCTIONAL ROM OF RIGHT KNEE TO EASE ADL'S. Goal Progress: Goal Met Goal 4:: INCREASE FUNCTIONAL STRENGTH OF RIGHT KNEE TO EASE ADL'S. Goal Progress: Goal Met Goal 5:: INDEP AND SAFE GAIT WITH LEAST ASSISTIVE DEVICE AND LEAST DEVIATIONS ON LEVEL SURFACES AND UP AND DOWN STEPS. Goal Progress: Goal Met Goal 6:: PATIENT WILL BE INDEP WITH HEP FOR CONTINUED IMPROVEMENT ONCE FORMAL PHYSICAL THERAPY CONCLUDES. Goal Progress: Goal Met Plan: D/C TO HEP. If there are questions or concerns regarding this patient's physical therapy, please feel free to call me at [phone]. Thank you for the referral of this patient. Sincerely, Ludmila Lehman, PT, Cert MDT Balance/Gait/Functional tests - Balance/Special Test Scores Lower Extremity Functional Score: 55
== END 2021-03-29 19:00 | disposition home or self-care (01) ==
LOC: PT 14:30
PROVIDERS: PCP Family Medicine
DX: M17.12 Unilateral primary osteoarthritis, left knee (principal); Z96.652 Presence of left artificial knee joint
CPT/HCPCS: 97110; 97140; 97162; 97164; 97530

== ENCOUNTER 2021-10-15 19:28 | Emergency (ER) | payer MEDICARE, OTHER, SELFPAY ==
[2021-10-15 19:30] VITALS: BP 141/55; O2SAT 74
--- NOTE | 2021-10-15 19:40 | ED.RN ---
IV NS hanging upon arrival, 800ml in, 200ml left in bag when started our new bag.
--- NOTE | 2021-10-15 19:46 | EX.ED.CRITCA ---
HPI History of Present Illness Chief Complaint: CPR Informant: family and EMS Narrative Narrative: Presented call out for cardiopulmonary arrest. EMS contacted at 1839 arrived within a few minutes. No bystander CPR. EMS started CPR noted ventricular fibrillation total of 5 shocks, total 5 epinephrine, 300 mg amiodarone, 1 amp of bicarb per EMS prior to arrival. He had eye gel placed. Left IO. Bear pump running. Reported patient was at dinner, felt sudden chest pressure arm pain when outside came in a collapse. Reported patient with no past medical history and takes no daily medications. Later discussion with family and spouse he mowed the lawn today had no problems. No cardiac history. Long-term smoking. He may have smoked when he was younger however there is no persistent smoking history. From records. Notes there was Flomax and baby aspirin along with vitamins. Prior similar symptoms: No PFSH PFSH Medical History (Updated 10/15/21 @ 19:[address] Dayne Reed DO) Colon polyps Renal calculi Home Medications Potassium 1 tab PO DAILY 06/22/18 [History Last Taken 06/22/18] aspirin 81 mg PO DAILY 06/22/18 [History Last Taken 06/22/18] tamsulosin 0.4 mg PO DAILY 06/22/18 [History Last Taken 06/22/18] cholecalciferol (vitamin D3) 2,000 unit PO DAILY 06/23/18 [History Last Taken 06/22/18 09:00] [id number] C-Mn 2 ea PO BREAKFAST 06/23/18 [History Last Taken 06/22/18 09:00] Allergy/AdvReac Type Severity Reaction Status Date / Time No Known Allergies Allergy Verified 07/14/18 18:40 Family History Sister Diabetes Father Heart disease Myocardial infarction CVA (cerebral vascular accident) Mother Cancer melanoma Surgical History History of colonoscopy (~2017) History of hernia repair History of throat surgery Status post wrist surgery Social History Smoking Status: Never smoker ROS ROS ED Review of Systems ROS Unobtainable: due to mental condition EXAM Physical Exam Const Vital Signs: 10/15/21 19:30 10/15/21 21:56 Temperature 96 F L Temperature Source Temporal Pulse Rate 0 L Blood Pressure 141/55 H Oxygen Delivery Method Room Air Constitutional Narrative: [id number] with igel symmetric breath sounds, unresponsive. HEENT Reports moist mucous membranes normocephalic and atraumatic Eyes conjunctivae normal General Eye ED: Yes normal appearance of both eyes Neck General: Negative for tenderness Chest Wall Chest: Negative for tenderness Resp normal respiratory effort and normal air movement Resp Narrative: Bilateral breath sounds with bagging. Effort and Inspection: symmetric chest movement; Negative for respiratory distress Cardio Cardio Narrative: Pulses palpated with compressions. GI normal to inspection, nondistended, normoactive bowel sounds and non-distended Palpation: Negative for rebound tenderness present Back/Spine no thoracic nor lumbar tenderness Extremity normal to inspection Extremity Narrative: Left tibial IO. General Extremety ED: Negative for edema or tenderness General Extremity: Negative for edema Neuro Neuro Narrative: Unresponsive Sensorium / Orientation: awake Skin no rashes or lesions noted and no wounds Skin Narrative: Abrasion noted left elbow, no active bleeding. MDM MDM MDM Narrative Medical decision making narrative: Continue ACLS on arrival. Additional 150 mg amiodarone, 2 g of mag, additional epinephrine and bicarb was given. During pulse checks, in the ED he was PEA there is no V. fib rhythm. Multiple ultrasounds with no cardiac motion there is no pericardial effusion. Family is brought in the room discussion patient was an hour into CPR there is no improvement with PEA. I discussed from history likely large DC with thrombus of the LAD causing his V. fib arrest. Time of pronounced at 1943 there is no cardiac motion no spontaneous breathing pupils were fixed and dilated. Per spouse PCP is Dr. Adria Brown. Will attempt to call for discussion. Welding Production Supervisor will be counted by nursing. 1954: I discussed with patient's PCP Dr. Brown, updated he is aware. Patient cleared by millinery salesperson. Critical Care Time Critical Care Time: Yes Critical care time (excluding procedures): 30-74 minutes, Discussing w/Patient &/or Family/Freight Representative, Performing Direct Patient Care at Bedside and - (35 minutes) Discharge Plan Triage Chief Complaint: CPR ED Provider: Dayne Reed Dx/Rx/DC Orders Clinical Impression: Cardiopulmonary arrest, Ventricular fibrillation Prescriptions: No Action aspirin 81 MG tablet,chewable 81 mg PO DAILY RF: 0 tamsulosin 0.4 MG capsule 0.4 mg PO DAILY RF: 0 Potassium 1 tab PO DAILY RF: 0 cholecalciferol (vitamin D3) 2,000 UNIT tablet 2,000 unit PO DAILY RF: 0 [id number]-irvfzwqec-mub C-Mn 1 EACH tablet 2 ea PO BREAKFAST RF: 0 Primary Care Provider: Adria Brown Referrals: Adria Brown DO [Primary Care Provider] - Disposition Disposition: Discharge Date/Time: 10/15/21 22:05 Date/Time: 10/15/21 19:43
--- NOTE | 2021-10-15 20:01 | CM.ED ---
SW Note Referral Source: [facility] Referral Reason: [facility] SW responded to [employer]. Emotional Support provided. SW remains available if needs arise. [place] MORA
[2021-10-15 21:56] VITALS: PULSE 0; TEMP 35.5; BMI 31.4
== END 2021-10-15 22:05 ==
PROVIDERS: Emergency Provider Emergency Medicine; PCP Family Medicine; Visit Provider Emergency Medicine
DX: I49.01 Ventricular fibrillation (principal); Z87.891 Personal history of nicotine dependence
CPT/HCPCS: 92950; 99281; J7030; A4216; J3475